=== PATIENT | female | born 1995 | race Caucasian/White ===

== ENCOUNTER 2016-07-02 02:31 | Emergency (ER) | payer OTHER ==
[~2016-07-02] VITALS: Ht 157.5 cm; Wt 47.4 kg
[~2016-07-02 02:31] MED LIST: CLIN1CAP6 PO; DIPH2%T PO; IBUP400 PO; LINE1TAB22 PO; LORTA5 PO; MULT-28 PO; PRED20 PO; PROBCAP4 PO
[2016-07-02 02:35] VITALS: BP 136/98; PULSE 115; RESP 26; TEMP 98.3; O2SAT 99
[2016-07-02] MEDS ORDERED: SODIUM CHLOR 0.9% 1000 ML INJ 1,000 ML IV SCH (02:54)
[2016-07-02] MEDS ORDERED: ONDANSETRON HCL 4 MG/2 ML VIAL IVP ONE (03:00)
--- NOTE | 2016-07-02 03:04 | PD ---
HPI Chief Complaint: drank too much energy drink Time Seen by Provider: 02:49 Travel History International Travel<30 days: No Contact w/Intl Traveler<30days: No Traveled to known affect area: No History of Present Illness HPI The patient is a 21-year-old female that drank a strong energy drink at 5:30 PM yesterday. She now has vomiting and feels nauseated. The only coffee she drank was yesterday morning. She feels jittery, has a fast heart rate and is somewhat anxious. PFSH Past Medical History ADHD: No Autoimmune Disease: No Anxiety: Yes Depression: No Cancer: No Cardiovascular Problems: No Diabetes: No Diminished Hearing: No Musculoskeletal: No Neurologic: Yes Psychiatric: Yes Respiratory: No Integumentary: Yes (ACNE) Immunizations Current: Yes Migraines: Yes Seizures: No Thyroid Disease: No Ulcer: No Menopausal: No Past Surgical History Other Surgery: No Social History Alcohol Use: No Tobacco Use: No Substance Use: No Allergies-Medications (Allergen,Severity, Reaction): Coded Allergies: No Known Allergies (Verified , 07/02/16) Reported Meds & Prescriptions Reported Meds & Active Scripts Active Reported [ Control Pills] DAILY Review of Systems Except as stated in HPI: all other systems reviewed are Neg Physical Exam Narrative GENERAL: Well-nourished, well-developed patient in moderate apparent distress who appears jittery, tachycardiac and somewhat anxious. Her vital signs show heart rate 115, respiratory rate of 26 and blood pressure 136/98 but otherwise normal. She appears to be hyperventilating. SKIN: Focused skin assessment warm/dry. No skin rashes seen. HEAD: Normocephalic. EYES: No scleral icterus. No injection or drainage. NECK: Supple, trachea midline. No JVD or lymphadenopathy. CARDIOVASCULAR: Regular rate and rhythm without murmurs, gallops, or rubs. RESPIRATORY: Breath sounds equal bilaterally. No accessory muscle use. Lungs clear to auscultation bilaterally. GASTROINTESTINAL: Abdomen soft, non-tender, nondistended. MUSCULOSKELETAL: No cyanosis, or edema. BACK: Nontender without obvious deformity. No CVA tenderness. Data Data Last Documented VS Vital Signs Date Time Temp Pulse Resp B/P Pulse Ox O2 Delivery O2 Flow Rate FiO2 07/02/16 04:00 83 18 117/61 100 Room Air 07/02/16 03:16 98.5 Orders Ondansetron Inj (Zofran Inj) (07/02/16 03:00) Sodium Chlor 0.9% 1000 Ml Inj (Ns 1000 M (07/02/16 02:54) MDM Medical Decision Making Medical Screen Exam Complete: Yes Emergency Medical Condition: Yes Medical Record Reviewed: Yes Differential Diagnosis Caffeine overdose, allergic reaction, anxiety reaction Narrative Course It is now 0502 and the patient no longer has the jittery tremor, she is no longer nauseated and her heart rate is in the mid 80s. The patient appears much more calm now. Impression: Caffeine overdose Diagnosis Primary Impression: Caffeine overdose Additional Instructions: Avoid energy drinks altogether. You are sensitive to caffeine and limit caffeinated coffee 2 simply one in the morning or, possibly 2 in the morning. Med/Other Pt SpecificInfo: No Change to Meds Disposition: 01 DISCHARGE HOME Condition: Stable Chris Gaona MD Jul 02, 2016 03:04
[2016-07-02 03:16] VITALS: BP 127/79; PULSE 88; RESP 18; TEMP 98.5; O2SAT 100
[2016-07-02] MEDS ORDERED: BIRTH CONTROL PILLS (03:17)
[2016-07-02 04:00] VITALS: BP 117/61; PULSE 83; RESP 18; O2SAT 100
[2016-07-02 05:20] VITALS: BP 118/58; PULSE 79; RESP 18; TEMP 98.6; O2SAT 100
[2016-07-02] MEDS ORDERED: PROM25TA5 PO (05:29)
== END 2016-07-02 05:35 | disposition home or self-care (01) ==
LOC: PHED 02:31
DX: T43.611A Poisoning by caffeine, accidental (unintentional), initial encounter (principal); R11.2 Nausea with vomiting, unspecified; R00.0 Tachycardia, unspecified
CPT/HCPCS: 96361; 96374; 99284; J2405; J7030